=== PATIENT | male | born 1960 | race Asian ===

== ENCOUNTER 2018-02-04 12:36 | Inpatient (IN) | payer OTHER ==
[~2018-02-04] VITALS: Ht 172.7 cm; Wt 63.0 kg
[2018-02-04 12:40] VITALS: Ht 172.7 cm; Wt 63.0 kg
[2018-02-04 13:25] LABS: BASOPHIL % 0.5 % (0-2); PLATELET COUNT 184 x10^3mcL (130-400); RED CELL DISTRIBUTION WIDTH 13.7 % (11.5-14.5)
[2018-02-04 13:33] LABS: CALCIUM 8.5 mg/dL (8.5-10.1); CARBON DIOXIDE 28.4 mmol/L (21-32); CHLORIDE SERUM 104 mmol/L (98-107); GFR1 > 60 mL/min; GLUCOSE SERUM 96 mg/dL (74-106); POTASSIUM SERUM 4.3 mmol/L (3.5-5.1); SODIUM SERUM 139 mmol/L (136-145)
[2018-02-04 13:37] LABS: ALBUMIN 3.8 g/dL (3.4-5.0); ALKALINE PHOSPHATASE 121 U/L (46-116); ALT/SGPT 21 U/L (16-63); AST/SGOT 21 U/L (15-37); BILIRUBIN TOTAL 0.6 mg/dL (0.20-1.00); TOTAL PROTEIN, SERUM 7.8 g/dL (6.4-8.2)
[2018-02-04] MEDS ORDERED: ENALAPRIL MALE2.5 MG PO (14:37)
[2018-02-04 15:35] VITALS: BP 134/100
[2018-02-04 15:50] LABS: AMPHETAMINE QUAL UR NONE DETECTED (See below)
[2018-02-04 16:08] LABS: CHOLESTEROL/HDL RATIO 4.3; MAGNESIUM 2.4 mg/dL (1.8-2.4); PHOSPHOROUS 2.5 mg/dL (2.5-4.9)
[2018-02-04 16:39] LABS: FREE T4 1.31 ng/dL (0.76-1.46); FREE THYROXINE INDEX 3.6 ug/dL (1.4-4.5); T4(THYROXINE) 9.9 ug/dL (4.7-13.3)
[2018-02-04 17:01] LABS: T3 TOTAL 1.02 ng/mL
[2018-02-04 17:54] VITALS: BP 131/92
[2018-02-04 18:52] VITALS: BP 128/85
[2018-02-04 21:51] VITALS: BP 119/80
[2018-02-05 06:24] VITALS: BP 119/71
[2018-02-05 08:21] VITALS: BP 127/89
[2018-02-05 13:09] VITALS: BP 120/84
[2018-02-05 15:35] LABS: microscopic required? NO
[2018-02-05 15:47] LABS: UA SPECIFIC GRAVITY >=1.030 (1.005-1.035); urine erythrocyte NEGATIVE (NEGATIVE)
[2018-02-05] MEDS ORDERED: APAP/HYDROCODON1 T13 PO (17:09)
[2018-02-05 17:35] VITALS: BP 120/84
[2018-02-05 17:58] VITALS: BP 135/73
== END 2018-02-05 19:05 | disposition home or self-care (01) | DRG 203 ==
LOC: ED 12:36 → DU 14:36
PROVIDERS: Emergency Medicine; Family Medicine
DX: M94.0 Chondrocostal junction syndrome [Tietze] (principal); I11.9 Hypertensive heart disease without heart failure; I10 Essential (primary) hypertension; E78.5 Hyperlipidemia, unspecified; F17.210 Nicotine dependence, cigarettes, uncomplicated; I49.3 Ventricular premature depolarization
CPT/HCPCS: 83880; 84439; 99406; J1885; Q0092